=== PATIENT | female | born 1930 | race Caucasian/White ===

== ENCOUNTER 2016-07-27 11:10 | Outpatient (CLI) | payer MEDICARE | END 2016-07-27 11:11 | disposition home or self-care (01) | DX: R05 Cough (principal); R50.9 Fever, unspecified ==

== ENCOUNTER 2016-08-01 19:58 | Emergency (ER) | payer MEDICARE ==
[2016-08-01] MEDS ORDERED: predniSONE 20 MG TABLET PO STA (20:13)
[2016-08-01] MEDS ORDERED: ALBUTEROL NEB 2.5 MG/3 ML INH STA (20:13)
[2016-08-01] MEDS ORDERED: BENZONATATE 100 MG CAPSULE PO STA (20:13)
[2016-08-01] MEDS ORDERED: ONDANSETRON ODT 4 MG TABLET TL STA (20:22)
[2016-08-01] MEDS ORDERED: ALBUTEROL NEB 2.5 MG/3 ML INH ONE (20:32)
[2016-08-01] MEDS ORDERED: ONDANSETRON ODT 4 MG TABLET ONE (20:51)
== END 2016-08-01 21:04 | disposition home or self-care (01) ==
DX: J40 Bronchitis, not specified as acute or chronic (principal); I10 Essential (primary) hypertension; Z87.891 Personal history of nicotine dependence
CPT/HCPCS: 94640; 99283; J7613; Q0162

== ENCOUNTER 2016-08-19 12:36 | Emergency (ER) | payer MEDICARE | END 2016-08-19 15:53 | disposition home or self-care (01) | DX: R07.89 Other chest pain (principal); I10 Essential (primary) hypertension ==

== ENCOUNTER 2016-09-18 07:08 | Outpatient (CLI) | payer MEDICARE | END 2016-09-18 07:09 | disposition home or self-care (01) | DX: R07.89 Other chest pain (principal); I10 Essential (primary) hypertension ==

== ENCOUNTER 2017-04-13 16:19 | Outpatient (CLI) | payer MEDICARE ==
[2017-04-13 12:52] LABS: ALBUMIN/GLOBULIN RATIO 1.3 (1.0-2.2); BILIRUBIN,TOTAL 0.7 mg/dL (0.2-1.0); CALCIUM 9.9 mg/dL (8.5-10.3); CREATININE 0.9 mg/dL (0.4-1.0); POTASSIUM 3.7 mmol/L (3.5-5.0); TOTAL PROTEIN 7.6 g/dL (6.7-8.2)
[2017-04-13 13:09] LABS: THYROID STIMULATING HORMONE 3.44 uIU/mL (0.34-5.60)
[2017-04-13 13:11] LABS: BILIRUBIN,URINE NEGATIVE (NEGATIVE)
[2017-04-13 13:18] LABS: UA CHARGE (STRIP ONLY) YES; UR CULTURE IF IND NOT INDICATED
== END 2017-04-13 16:20 | disposition home or self-care (01) ==
LOC: LAB.R 16:19
PROVIDERS: ATTEND Physician Assistant Medical
DX: R41.3 Other amnesia (principal); F41.9 Anxiety disorder, unspecified
CPT/HCPCS: 80053; 81001; 81003; 82607; 84443; 87086

== ENCOUNTER 2017-04-16 11:41 | Outpatient (CLI) | payer MEDICARE ==
[2017-04-16] MEDS ORDERED: IOPAMIDOL-300 50 ML VIAL ONE (12:13)
[2017-04-16] MEDS ORDERED: IOPAMIDOL-300 100 ML VIAL IVP ONE ×2 (14:06)
--- NOTE | 2017-04-16 16:02 | CT Report ---
CT BRAIN WITH AND WITHOUT CONTRAST: 04/16/2017 CLINICAL INDICATION: Memory loss, anxiety. TECHNIQUE: Axial CT images of the brain were obtained prior to and following 50 mL Isovue-[address] No previous CT is available for comparison. In accordance with CT protocol optimization, one or more of the following dose reduction techniques w ere utilized for this exam: automated exposure control, adjustment of mA and/or KV based on patient size, or use of iterative reconstructive technique. FINDINGS: The ventricles and sulci demonstrate mild symmetric enlargement, compatible with atrophy. The basilar cisterns are patent. There is no evidence of hemorrhage or mass effect. No abnormal en hancement is appreciated following contrast administration. IMPRESSION: ATROPHY. NO EVIDENCE OF HEMORRHAGE OR ABNORMAL ENHANCEMENT. JOB #: [id number] EXT JOB #:[id number]
== END 2017-04-16 11:42 | disposition home or self-care (01) ==
LOC: DI 11:41
PROVIDERS: ATTEND Physician Assistant Medical
DX: G31.9 Degenerative disease of nervous system, unspecified (principal); R41.3 Other amnesia
CPT/HCPCS: 70470; Q9967

== ENCOUNTER 2017-06-12 18:58 | Outpatient (CLI) | payer MEDICARE ==
--- NOTE | 2017-06-14 15:58 | Ultrasound Report ---
CAROTID ULTRASOUND: 06/12/2017 HISTORY: Localized swelling, mass, and lump, left neck. COMPARISON: 12/23/2009. TECHNIQUE: Real-time sonographic vascular imaging was performed by the switchboard operator through the carotid arteries utilizing both color-flow and Doppler spectral analysis. Multiple assistance representative static images were saved for review. Vessel PSV cm/sec 2D Plaque Estimate % EDV cm/sec ICA/CCA PSV % Stenosis RCCA Prox 49.2 -- RCCA Dist 51.4 13.6 -- RECA 79 -- RT BULB 71.8 -- 25.1 1.4 CHICO Prox 69.7 -- 20 1.4 CHICO Mid 81.2 -- 26.4 1.6 CHICO Dist 107.4 -- 33.2 2.1 RVA 67.6 RVA flow direction: Antegrade. Vessel PSV cm/sec 2D Plaque Estimate % EDV cm/sec ICA/CCA PSV % Stenosis LCCA Prox 81.1 -- LCCA Dist 60.0 13.5 -- LECA 86 -- LFT BULB 41.1 -- 0.5 0.7 LICA Prox 58.4 -- 21.6 1.0 LICA Mid 76.3 -- 24.9 1.3 LICA Dist 112.8 -- 37.9 1.9 LVA 74.2 LVA flow direction: Antegrade. Velocity criteria are extrapolated from diameter data as defined by the Society of Radiologists in Ultrasound Consensus Conference Radiology 2003; 229; 340-346. Degree of Stenosis % ICA PSV cm/sec Plaque Estimate % ICA/CCA RSV Ratio ICA EDV cm/sec Normal < 125 None < 2.0 < 40 <50 < 125 < 50 < 2.0 < 40 50-69 125 - 130 >/= 50 2.0 - 4.0 40 - 100 >/= 70 but less than near occlusion > 230 >/= 50 > 4.0 > 100 Near occlusion High, low, or undetectable Visible lumen Variable Variable Total occlusion Undetectable No detectable lumen Not applicable Not applicable FINDINGS Calcified plaque noted in the carotid arteries bilaterally. The area of palpable concern left neck corresponds to the carotid bulb with a minimally prominent/tortuous carotid artery. RIGHT: There is mild plaquing in the right carotid bifurcation, without evidence of a focal hemodynamically significant carotid stenosis. LEFT: There is mild plaquing in the left carotid bifurcation, without evidence of a focal hemodynamically significant carotid stenosis. Vertebral arteries demonstrate antegrade flow bilaterally. IMPRESSION: NO EVIDENCE OF A FLOW-LIMITING STENOSIS IN EITHER CAROTID SYSTEM. BILATERAL VERTEBRAL ARTERY ANTEGRADE BLOOD FLOW. CALCIFIED PLAQUE NOTED IN THE CAROTID ARTERIES BILATERALLY. THE CLINICALLY PALPABLE LUMP CORRESPONDS TO A PROMINENT LEFT CAROTID BULB. NO ANEURYSM IS SEEN. MTDD
== END 2017-06-12 18:59 | disposition home or self-care (01) ==
LOC: DI 18:58
PROVIDERS: ATTEND Physician Assistant Medical
DX: R22.1 Localized swelling, mass and lump, neck (principal)
CPT/HCPCS: 93880

== ENCOUNTER 2017-07-26 08:00 | Outpatient (CLI) | payer MEDICARE ==
[2017-07-26 17:48] LABS: BASOPHILS # (AUTO) 0.1 10^3/uL (0.0-0.1); BASOPHILS % (AUTO) 1.2 %; EOSINOPHILS # (AUTO) 0.2 10^3/uL (0.0-0.7); EOSINOPHILS % (AUTO) 2.9 %; HGB - HEMOGLOBIN 12.1 g/dL (12.0-16.0); LYMPHOCYTES % (AUTO) 30.3 %; MEAN CORPUSCULAR HEMOGLOBIN 28.4 pg (27.0-31.0); MEAN CORPUSCULAR HGB CONC 32.1 g/dL (32.0-36.0); MEAN CORPUSCULAR VOLUME 88.5 fL (81.0-99.0); MONOCYTES # (AUTO) 0.6 10^3/uL (0.0-1.0); MONOCYTES % (AUTO) 9.8 %; NEUTROPHILS # (AUTO) 3.7 10^3/uL (1.5-6.6); NEUTROPHILS % (AUTO) 55.8 %; PLT - PLATELET COUNT 237 10^3/uL (130-450); RED BLOOD COUNT 4.25 10^6/uL (4.20-5.40); RED CELL DISTRIBUTION WIDTH 14.6 % (12.0-15.0); WHITE BLOOD COUNT 6.6 x10^3/uL (4.8-10.8)
[2017-07-26 18:07] LABS: ALBUMIN/GLOBULIN RATIO 1.3 (1.0-2.2); ALKALINE PHOSPHATASE 71 IU/L (42-121); ALT ALANINE AMINOTRANSFERASE 16 IU/L (10-60); AST ASPARTATE AMINOTRANSFERASE 28 IU/L (10-42); BILIRUBIN,TOTAL 0.4 mg/dL (0.2-1.0); BUN - BLOOD UREA NITROGEN 30 mg/dL (6-20); CALCIUM 8.8 mg/dL (8.5-10.3); CARBON DIOXIDE - CO2 28 mmol/L (21-32); CHLORIDE 103 mmol/L (101-111); CHOL/HDL RATIO 3.9 (<4.4); CHOLESTEROL 245 mg/dL; CREATININE 0.9 mg/dL (0.4-1.0); GFR - MDRD 60 (>89); GLUCOSE 81 mg/dL (70-100); HDL CHOLESTEROL 63 mg/dL; LDL CHOLESTEROL,CALCULATED 162 mg/dL; LDL/HDL RATIO 2.6 (<4.4); SODIUM 137 mmol/L (135-145); TOTAL PROTEIN 7.2 g/dL (6.7-8.2); VLDL CHOLESTEROL 20 mg/dL
== END 2017-07-26 08:01 | disposition home or self-care (01) ==
LOC: LAB.R 08:00
PROVIDERS: ATTEND Physician Assistant Medical
DX: I10 Essential (primary) hypertension (principal); E55.9 Vitamin D deficiency, unspecified; E78.2 Mixed hyperlipidemia; Z79.899 Other long term (current) drug therapy
CPT/HCPCS: 80053; 80061; 82306; 83721; 85025

== ENCOUNTER 2017-12-07 19:13 | Observation (INO) | payer MEDICARE ==
[2017-12-07] MEDS ORDERED: ASPIRIN CHEW 81 MG TABLET PO STA (19:45)
--- NOTE | 2017-12-07 19:45 | ED Physician Documentation ---
PD HPI CHEST PAIN - Stated complaint Stated Complaint: CHEST PX - Chief complaint Chief Complaint: Cardiac - History obtained from History obtained from: Patient, Family - History of Present Illness Timing - onset: How many hours ago (1) Timing - onset during: Other (talking on the phone) Timing - duration: Minutes (15-20) Timing - details: Abrupt onset, Now resolved Pain level max: 3 Pain level now: 0 Quality: Pressure, Tightness Location: Substernal Radiation: Other (non-radiating) Improved by: Nothing Worsened by: No: Exertion, Inspiration, Movement, Palpation Associated symptoms: Shortness of air (mild), Feeling faint / dizzy. No: Diaphoresis, Nausea, Vomiting, General Weakness, Palpitations Similar symptoms before: Has not had sx before Recently seen: Not recently seen Review of Systems Ten Systems: 10 systems reviewed and negative Constitutional: denies: Fever, Chills Ears: denies: Ear pain Nose: denies: Rhinorrhea / runny nose Throat: denies: Sore throat Cardiac: denies: Palpitations Respiratory: denies: Cough, Wheezing GI: denies: Abdominal Pain, Nausea, Vomiting, Diarrhea Skin: denies: Rash Musculoskeletal: denies: Neck pain, Back pain Neurologic: denies: Focal weakness, Numbness, Headache PD PAST MEDICAL HISTORY - Past Medical History Past Medical History: Yes Cardiovascular: Hypertension, High cholesterol, Murmur Respiratory: None Endocrine/Autoimmune: None GI: GERD : None HEENT: Chronic hearing loss Psych: Anxiety Musculoskeletal: Osteoarthritis Derm: None - Past Surgical History Past Surgical History: No General: Appendectomy Ortho: Carpal Tunnel surgery HEENT: Cataracts, Tonsil/Adenoidectomy Derm: Skin cancer surgery - Present Medications Home Medications: Ambulatory Orders Medication Instructions Recorded Confirmed Gabapentin 600 mg ORAL QPM 03/10/15 08/01/16 Hydrochlorothiazide 12.5 mg ORAL DAILY 03/10/15 08/01/16 Metoprolol Tartrate 25 mg ORAL BID 03/10/15 08/01/16 Ubidecarenone [Co Q-10] 200 mg ORAL DAILY 03/10/15 08/01/16 Vit B12/FA/Pyridoxine HCl/Aa15 1 tab ORAL DAILY 03/10/15 08/01/16 [Glycotrol Capsule] Vit D3/Folic Acid/B2/B6/B12 1 tab ORAL DAILY 03/10/15 08/01/16 [Folgard Tablet] Vit E/Tocotrienol Jonathan,Alph,Del 1 tab ORAL DAILY 03/10/15 08/01/16 [Maxilife Rice 50 mg Capsule] Albuterol Sulfate [Proventil Hfa 1 - 2 puffs IH Q4H PRN #1 08/01/16 Inhaler] hfa.aer.ad Azithromycin 250 mg PO DAILY 08/01/16 08/01/16 Benzonatate [Tessalon] 200 mg PO TID PRN #30 capsule 08/01/16 Ondansetron HCl [Zofran] 4 mg PO Q6H PRN #10 tablet 08/01/16 predniSONE [Deltasone] 60 mg PO DAILY 5 Days tablet 08/01/16 - Allergies Allergies/Adverse Reactions: Allergies Allergy/AdvReac Type Severity Reaction Status Date / Time codeine AdvReac Unknown Verified 12/07/17 19:24 - Social History Does the pt smoke?: No Smoking Status: Never smoker Does the pt drink ETOH?: No Does the pt have substance abuse?: No - Immunizations Immunizations are current?: Yes - POLST Patient has POLST: No PD ED PE NORMAL - Vitals Vital signs reviewed: Yes - General General: Alert and oriented X 3, No acute distress - HEENT HEENT: Moist mucous membranes - Neck Neck: Supple, no meningeal sign - Cardiac Cardiac: RRR, Strong equal pulses - Respiratory Respiratory: No respiratory distress, Clear bilaterally - Abdomen Abdomen: Soft, Non tender, Non distended - Back Back: No spinal TTP - Derm Derm: Warm and dry - Extremities Extremities: No edema, No calf tenderness / cord - Neuro Neuro: Alert and oriented X 3 - Psych Psych: Normal mood, Normal affect Results - Vitals Vitals: Vital Signs - 24 hr 12/07/17 12/07/17 19:22 20:06 Temperature 36.8 C Heart Rate 71 56 L Respiratory 17 18 Rate Blood Pressure 230/103 H 194/71 H O2 Saturation 98 97 Oxygen O2 Source Room air - EKG (time done) 1924 Rate: Rate (enter#) (64) Rhythm: NSR [place]: Normal Intervals: Normal NM QRS: Normal Ischemia: Normal ST segments, Q waves (III) - Labs Labs: Laboratory Tests 12/07/17 12/07/17 12/07/17 19:47 19:47 19:47 WBC 8.7 RBC 4.21 Hgb 11.0 L Hct 34.1 L MCV 81.1 MCH 26.1 L MCHC 32.2 RDW 16.2 H Plt Count 222 MPV 8.9 Neut # (Auto) 4.0 Lymph # (Auto) 3.6 H [place] # (Auto) 0.9 Eos # (Auto) 0.2 Baso # (Auto) 0.1 Absolute Nucleated RBC 0.00 Nucleated RBC % 0.0 Sodium 136 Potassium 3.9 Chloride 102 Carbon Dioxide 26 Anion Gap 8.0 BUN 29 H Creatinine 0.9 Estimated GFR (MDRD) 60 L Glucose 111 H Calcium 9.3 Total Bilirubin 0.6 AST 30 ALT 19 Alkaline Phosphatase 78 Troponin I < 0.04 Total Protein 7.3 Albumin 4.1 Globulin 3.2 Albumin/Globulin Ratio 1.3 Lipase 33 - Rads (name of study) cxr Radiology: Prelim report reviewed, EMP read contemporaneously, See rad report ( No acute radiographic pulmonary abnormalities. ) PD MEDICAL DECISION MAKING - ED course Complexity details: reviewed results, re-evaluated patient, considered differential (No ST elevation [place], no aortic dissection, no PE, no tension pneumothorax, no aortic aneurysm), d/w patient, d/w family, d/w sharepoint consultant ED course: Patient is an 87-year-old female who presents to the emergency department with between 15 and 30 minutes of constant chest pressure tonight. This resolved prior to arrival. She was also significantly hypertensive upon arrival to the emergency department. She states that she does not check her blood pressure at home, but states that she believes it is lower than that. She states it has been this high in the past however. No acute EKG findings. Given her uncontrolled hypertension, age and 15-30 minutes of centralized chest pain, I think it is reasonable to place her in observation for cardiac rule out. Discussed the case with Dr. Frias, hospitalist who accepts. This document was made in part using voice recognition software. While efforts are made to proofread this document, sound alike and grammatical errors may occur. Departure - Departure Disposition: ED Place in Observation Clinical Impression: Chest pain Qualifiers: Chest pain type: unspecified Qualified Code(s): R07.9 - Chest pain, unspecified Hypertension Qualifiers: Hypertension type: unspecified Qualified Code(s): I10 - Essential (primary) hypertension Condition: Stable Discharge Date/Time: 12/07/17 22:03
[2017-12-07 19:53] LABS: BASOPHILS # (AUTO) 0.1 10^3/uL (0.0-0.1); BASOPHILS % (AUTO) 1.1 %; EOSINOPHILS # (AUTO) 0.2 10^3/uL (0.0-0.7); EOSINOPHILS % (AUTO) 1.9 %; LYMPHOCYTES # (AUTO) 3.6 10^3/uL (1.5-3.5); LYMPHOCYTES % (AUTO) 41.2 %; MEAN CORPUSCULAR HEMOGLOBIN 26.1 pg (27.0-31.0); MEAN CORPUSCULAR HGB CONC 32.2 g/dL (32.0-36.0); MEAN CORPUSCULAR VOLUME 81.1 fL (81.0-99.0); MEAN PLATELET VOLUME 8.9 fL (7.9-10.8); MONOCYTES # (AUTO) 0.9 10^3/uL (0.0-1.0); MONOCYTES % (AUTO) 10.5 %; NEUTROPHILS % (AUTO) 45.3 %; PLT - PLATELET COUNT 222 10^3/uL (130-450); RED BLOOD COUNT 4.21 10^6/uL (4.20-5.40); RED CELL DISTRIBUTION WIDTH 16.2 % (12.0-15.0); WHITE BLOOD COUNT 8.7 x10^3/uL (4.8-10.8)
[2017-12-07 20:06] LABS: ALBUMIN 4.1 g/dL (3.2-5.5); ALBUMIN/GLOBULIN RATIO 1.3 (1.0-2.2); BILIRUBIN,TOTAL 0.6 mg/dL (0.2-1.0); CALCIUM 9.3 mg/dL (8.5-10.3); CREATININE 0.9 mg/dL (0.4-1.0); TOTAL PROTEIN 7.3 g/dL (6.7-8.2)
--- NOTE | 2017-12-07 20:31 | XRAY Report ---
EXAM: CHEST RADIOGRAPHY EXAM DATE: 12/07/2017 08:08 PM. CLINICAL HISTORY: Chest pain. COMPARISON: 07/27/16. TECHNIQUE: 1 view. FINDINGS: Lungs/Pleura: No dense consolidation. No large effusion or pneumothorax. No pulmonary edema. Mediastinum: Heart and mediastinal contours are unremarkable. Other: Dextroscoliosis. IMPRESSION: No acute radiographic pulmonary abnormalities. [facility] Referring Provider Line: [phone] SITE ID: [id number]
--- NOTE | 2017-12-07 20:31 | XRAY Preliminary Report ---
Exam: XR CHEST 1 VIEW X-RAY IMPRESSION: No acute radiographic pulmonary abnormalities. [facility] SITE ID: [id number]
[2017-12-07] MEDS ORDERED: BENZONATATE 100 MG CAPSULE PO PRN (20:48)
[2017-12-07] MEDS ORDERED: SODIUM CHLORIDE FLUSH 0.9% 10 ML SYRINGE IVP PRN (20:49)
[2017-12-07] MEDS ORDERED: PROCHLORPERAZINE 10 MG/2 ML VIAL IVP PRN (20:49)
[2017-12-07] MEDS ORDERED: MORPHINE 2 MG/ML SYRINGE IVP PRN (20:49)
[2017-12-07] MEDS ORDERED: IBUPROFEN 600 MG TABLET PO PRN (20:49)
[2017-12-07] MEDS ORDERED: ONDANSETRON 4 MG/2 ML VIAL IVP PRN (20:49)
[2017-12-07] MEDS ORDERED: NITROGLYCERIN SL 0.4 MG TABLET SL PRN (20:49)
[2017-12-07] MEDS ORDERED: oxyCODONE 5 MG TABLET PO PRN (20:49)
[2017-12-07] MEDS ORDERED: ZOLPIDEM 5 MG TABLET PO PRN (20:49)
[2017-12-07] MEDS ORDERED: ACETAMINOPHEN 325 MG TABLET PO PRN (20:49)
[2017-12-07] MEDS ORDERED: ATORVASTATIN 40 MG TABLET PO SCH (21:00)
[2017-12-07] MEDS ORDERED: GABAPENTIN 300 MG CAPSULE PO SCH (21:00)
[2017-12-07] MEDS: METOPROLOL TARTRATE 25 MG TABLET PO SCH (22:49)
[2017-12-07] MEDS ORDERED: hydrALAZINE INJ 20 MG/ML VIAL IVP SCH (22:58)
--- NOTE | 2017-12-07 23:13 | HISTORY & PHYSICAL EXAMINATION ---
Chief Complaint - Chief Complaint Chief Complaint: Chest Pain History of Present Illness - Admitted From Admitted From:: Emergency department - History Obtained From Records Reviewed: Yes History obtained from: Patient Exam Limitations: None - History of Present Illness HPI Comment/Other: Patient is an 87-year-old female with a past medical history significant for hypertension, restless leg syndrome, ascites and cataracts who presents to the emergency department with a chief complaint of chest pain. The patient states that she has been under a lot of stress over the last week as her was hospitalized last week and her daughter has been also dealing with health problems. She states that today she was on the phone and just getting ready to hang up when all of a sudden she felt hit on her chest. She states that she felt a pressure-like pain in the substernal area. She states that it only lasted for about 1-2 seconds and then resolved. She states that she then walked out of the kitchen and then got hit again with a wave of pain that was in the substernal area that lasted a little bit longer this time but had resolved by the time she got to the hospital. She states that she left home 5- 10 minutes after she felt the second episode of chest pain. She states that she had no associated symptoms. She denies any associated shortness of air, nausea, palpitations or diaphoresis. She states that the pain did not radiate it just stayed in that substernal area right in the center of her chest. She states that she has never had pain like this before. She states that in the past she has had pain in her left shoulder or in her jaw but never substernal like this before. She states when the pain came on the second time it was more severe and lasted slightly longer. She states that after she had the pain she just did not feel right. The patient has had a stress test 1 year ago with her primary care physician which was negative at that time. Patient denies any headache, blurred vision, runny nose, sore throat, nasal congestion, difficulty swallowing, orthopnea, PND, increased lower extremity swelling, fevers, chills, cough, abdominal pain, vomiting, diarrhea, constipation, urinary urgency, urinary frequency, dysuria, joint pain, muscle aches, back pain, neck stiffness, recent unintentional weight loss, changes in her appetite, skin changes, skin rashes, hair loss, polyuria, polydipsia, or any focal neurologic deficits. On presentation to the emergency department the patient was afebrile but was very hypertensive with a blood pressure of 230/103 after she settled on a blood pressure did come down slightly but was still elevated. The patient was not in any respiratory distress. The patient was given aspirin in the emergency department. The patient underwent routine lab work which was significant for mild anemia with hemoglobin of 11.0. The patient's troponin was less than 0.04. Patient did undergo a EKG which showed a normal sinus rhythm without any ST elevations or ischemic changes. The patient also had a chest x-ray done in the emergency department which showed no acute radiographic pulmonary abnormalities. Given the patient's age and risk factors with uncontrolled hypertension the patient was placed in observation for serial troponins and telemetry monitoring. History - Past Medical History Cardiovascular: reports: Hypertension, High cholesterol, Murmur Respiratory: reports: None Endocrine/Autoimmune: reports: None GI: reports: GERD : reports: None HEENT: reports: Chronic hearing loss Psych: reports: Anxiety Musculoskeletal: reports: Osteoarthritis Derm: reports: None MRSA Hx?: No - Past Surgical History General: reports: Appendectomy Ortho: reports: Carpal Tunnel surgery HEENT: reports: Cataracts, Tonsil/Adenoidectomy Derm: reports: Skin cancer surgery - Family & Social History Family History: Mother: (Dad in a motor vehicle accident), CAD, Father: , Brother: Cancer (Lung cancer), Mental Illness (Brother committed suicide) Living arrangement: At home Living Situation: With spouse/s.o. Social History Notes: The patient lives in [place] with her . They have been for 60 years. They have 6 children 3R her biological children and she has 3 stepchildren. 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 She is still fully independent and ambulates without any assistance device. The patient smoked for just over 30 years and smoked about 1-1/2 packs a day but quit in 1978. She and her were moderate drinkers for some time but quit many years ago. She denies any illicit drug use. - POLST Patient has POLST: No POLST Status: DNR Meds/Allgy - Home Medications Home Medications: Ambulatory Orders Medication Instructions Recorded Confirmed Gabapentin 600 mg ORAL QPM 03/10/15 08/01/16 Hydrochlorothiazide 12.5 mg ORAL DAILY 03/10/15 08/01/16 Metoprolol Tartrate 25 mg ORAL BID 03/10/15 08/01/16 Ubidecarenone [Co Q-10] 200 mg ORAL DAILY 03/10/15 08/01/16 Vit B12/FA/Pyridoxine HCl/Aa15 1 tab ORAL DAILY 03/10/15 08/01/16 [Glycotrol Capsule] Vit D3/Folic Acid/B2/B6/B12 1 tab ORAL DAILY 03/10/15 08/01/16 [Folgard Tablet] Vit E/Tocotrienol Jonathan,Alph,Del 1 tab ORAL DAILY 03/10/15 08/01/16 [Maxilife Rice 50 mg Capsule] Albuterol Sulfate [Proventil Hfa 1 - 2 puffs IH Q4H PRN #1 08/01/16 Inhaler] hfa.aer.ad Azithromycin 250 mg PO DAILY 08/01/16 08/01/16 Benzonatate [Tessalon] 200 mg PO TID PRN #30 capsule 08/01/16 Ondansetron HCl [Zofran] 4 mg PO Q6H PRN #10 tablet 08/01/16 predniSONE [Deltasone] 60 mg PO DAILY 5 Days tablet 08/01/16 - Allergies Allergies/Adverse Reactions: Allergies Allergy/AdvReac Type Severity Reaction Status Date / Time codeine AdvReac Unknown Verified 12/07/17 19:24 Review of Systems - Other Findings Other Findings: A comprehensive review of systems was performed the pertinent positives and negatives are stated above in the HPI and the remainder of the review of systems is negative. Exam - Vital Signs Reviewed Vital Signs: Yes Vital Signs: Vital Signs x48h Temp Pulse Pulse Resp BP BP Pulse Ox 12/07/17 22:49 196/78 H 12/07/17 22:08 37.3 C 61 16 198/78 H 97 12/07/17 21:44 64 19 196/85 H 96 12/07/17 20:57 57 L 16 155/82 H 97 - Physical Exam General Appearance: positive: No acute distress Eyes Bilateral: positive: Normal inspection, PERRL ENT: positive: ENT inspection nml, Pharynx nml, No signs of dehydration Neck: positive: Nml inspection, Thyroid nml, No JVD, Trachea midline Respiratory: positive: Chest non-tender, No respiratory distress, Breath sounds nml. negative: Wheezes Cardiovascular: positive: Regular rate & rhythm, No murmur, No gallop Peripheral Pulses: positive: 2+ Abdomen: positive: Non-tender, No organomegaly, Nml bowel sounds, No distention Back: positive: Nml inspection. negative: CVA tenderness (R), CVA tenderness (L ) Skin: positive: Color nml, No rash, Warm, Dry. negative: Cyanosis, Pallor Extremities: positive: Non-tender, Full ROM, Nml appearance Neurologic/Psychiatric: positive: Oriented x3, CN's nml (2-12), Motor nml, Sensation nml, Mood/affect nml Conclusion/Plan - Problem List (1) Chest pain Conclusion/Plan: Patient presented with chest pain occurring at rest which started less than an hour prior to arrival to the emergency department. It was substernal without any radiation and resolves on its own by the time the patient got to the emergency department. The patient has risk factors of hypertension, hyperlipidemia and age. She had a stress test just over a year ago that was negative. The patient's presenting EKG and troponin were negative. The patient was placed in observation for rule out of acute coronary syndrome Plan: Serial troponins 3 Telemetry monitoring Echocardiogram Nitroglycerin as needed Aspirin Lipitor Qualifiers: Chest pain type: unspecified Qualified Code(s): R07.9 - Chest pain, unspecified (2) Hypertension Conclusion/Plan: The patient has uncontrolled hypertension on presentation with systolic blood pressure of 200. The patient's blood pressure continued to be uncontrolled even when she arrived to the floor. The patient does take hydrochlorothiazide along with metoprolol at home. Given the patient's uncontrolled blood pressure we will give her IV hydralazine and her home medication. We will monitor her blood pressure and titrate medications as needed. Qualifiers: Hypertension type: essential hypertension Qualified Code(s): I10 - Essential (primary) hypertension (3) Restless leg syndrome Conclusion/Plan: Patient has a history of restless leg syndrome and uses gabapentin at home we will continue her on her home dose of gabapentin. (4) Anxiety Conclusion/Plan: The patient does have a history of anxiety and given her recent stress has been under quite a bit of anxiety recently. She uses Lorazepam at home for her anxiety and we will continue her on Lorazepam while she is hospitalized here. - Lab Results Lab results reviewed: Yes Fish Bones: 12/07/17 19:47 12/07/17 19:47 Other Lab Results: Laboratory Results WBC 8.7 x10^3/uL (4.8-10.8) 12/07/17 19:47 RBC 4.21 10^6/uL (4.20-5.40) 12/07/17 19:47 Hgb 11.0 g/dL (12.0-16.0) L 12/07/17 19:47 Hct 34.1 % (37.0-47.0) L 12/07/17 19:47 MCV 81.1 fL (81.0-99.0) 12/07/17 19:47 MCH 26.1 pg (27.0-31.0) L 12/07/17 19:47 MCHC 32.2 g/dL (32.0-36.0) 12/07/17 19:47 RDW 16.2 % (12.0-15.0) H 12/07/17 19:47 Plt Count 222 10^3/uL (130-450) 12/07/17 19:47 MPV 8.9 fL (7.9-10.8) 12/07/17 19:47 Neut # (Auto) 4.0 10^3/uL (1.5-6.6) 12/07/17 19:47 Lymph # (Auto) 3.6 10^3/uL (1.5-3.5) H 12/07/17 19:47 [place] # (Auto) 0.9 10^3/uL (0.0-1.0) 12/07/17 19:47 Eos # (Auto) 0.2 10^3/uL (0.0-0.7) 12/07/17 19:47 Baso # (Auto) 0.1 10^3/uL (0.0-0.1) 12/07/17 19:47 Absolute Nucleated RBC 0.00 x10^3/uL 12/07/17 19:47 Nucleated RBC % 0.0 /100WBC 12/07/17 19:47 Sodium 136 mmol/L (135-145) 12/07/17 19:47 Potassium 3.9 mmol/L (3.5-5.0) 12/07/17 19:47 Chloride 102 mmol/L (101-111) 12/07/17 19:47 Carbon Dioxide 26 mmol/L (21-32) 12/07/17 19:47 Anion Gap 8.0 (6-13) 12/07/17 19:47 BUN 29 mg/dL (6-20) H 12/07/17 19:47 Creatinine 0.9 mg/dL (0.4-1.0) 12/07/17 19:47 Estimated GFR (MDRD) 60 (>89) L 12/07/17 19:47 Glucose 111 mg/dL (70-100) H 12/07/17 19:47 Calcium 9.3 mg/dL (8.5-10.3) 12/07/17 19:47 Total Bilirubin 0.6 mg/dL (0.2-1.0) 12/07/17 19:47 AST 30 IU/L (10-42) 12/07/17 19:47 ALT 19 IU/L (10-60) 12/07/17 19:47 Alkaline Phosphatase 78 IU/L (42-121) 12/07/17 19:47 Troponin I < 0.04 ng/mL (<0.49) 12/07/17 19:47 Total Protein 7.3 g/dL (6.7-8.2) 12/07/17 19:47 Albumin 4.1 g/dL (3.2-5.5) 12/07/17 19:47 Globulin 3.2 g/dL (2.1-4.2) 12/07/17 19:47 Albumin/Globulin Ratio 1.3 (1.0-2.2) 12/07/17 19:47 Lipase 33 U/L (22-51) 12/07/17 19:47 - Diagnostic Imaging Results Diagnostic Imaging Results: positive: Final report reviewed Diagnostic Imaging Results Comments: Chest x-ray Impression: No acute radiographic pulmonary abnormalities - EKG Results EKG Interpreted Independently: Yes EKG Findings: Normal sinus rhythm without any ST elevations or ischemic changes Core Measures - Anticipated LOS I expect patient to be DC'd or transferred within 96 hours.: Yes - DVT/VTE - Prophylaxis VTE/DVT Prophylaxis med ordered at admit?: Yes
[2017-12-07] MEDS ORDERED: WATER FOR INJECTION,STERILE 10 ML ONE (23:51)
[2017-12-08] MEDS: SODIUM CHLORIDE FLUSH 0.9% 10 ML SYRINGE IVP SCH ×2 (00:42→09:09)
[2017-12-08] MEDS ORDERED: LORazepam 0.5 MG TABLET PO PRN (00:50)
--- NOTE | 2017-12-08 01:18 | ADVANCE CARE PLANNING NOTE ---
Advance Care Planning - Date/Time Date: 12/07/17 Time: 22:45 - Purpose of encounter Text: To establish patient's CODE STATUS. - Parties in attendance Parties in attendance: Myself Dr. Frias and the patient Charisse Voss - Decisional capacity Decisional capacity of: Patient has mild memory impairment but has full capacity and understanding of her medical condition to make her own decisions independently. - Subjective/Patient's story Subjective/Patient's story: Patient is an 87-year-old female who has a history of hypertension, anxiety, restless leg syndrome and cataracts she is otherwise fairly healthy lives with her in their home and is fully independent. She came to the hospital today as she was having chest pain is now in observation for serial troponins and rule out of acute coronary syndrome. - Objective/Medical story Objective/Medical Story: Patient is an 87-year-old female who has a history of hypertension, anxiety, restless leg syndrome and cataracts she is otherwise fairly healthy lives with her in their home and is fully independent. She came to the hospital today as she was having chest pain is now in observation for serial troponins and rule out of acute coronary syndrome. - Goals of Care Goals of care determinations: The patient states that at this age she would not want any excessive measures to be performed. She states she still wants to be fully treated for example if she did have acute coronary syndrome she would want a cardiac cath and stents if needed. She however would not want to be resuscitated if her heart was to stop as she would want to go naturally. She states that she does not want to be intubated just in order to prolong her life but would accept intubation for a necessary procedure if the intubation is reversible. - Plan Plan: We will make the patient's CODE STATUS DO NOT RESUSCITATE. We will work her up for acute coronary syndrome while she is in observation. - Code Status Code Status: Do Not Attempt Resuscitation - Time Spent on Advance Care Planning Time spent on advance care plannin minutes
[2017-12-08 04:53] LABS: BASOPHILS # (AUTO) 0.1 10^3/uL (0.0-0.1); EOSINOPHILS # (AUTO) 0.2 10^3/uL (0.0-0.7); EOSINOPHILS % (AUTO) 2.4 %; LYMPHOCYTES # (AUTO) 2.6 10^3/uL (1.5-3.5); LYMPHOCYTES % (AUTO) 28.5 %; MEAN CORPUSCULAR HEMOGLOBIN 26.3 pg (27.0-31.0); MEAN CORPUSCULAR HGB CONC 32.4 g/dL (32.0-36.0); MEAN CORPUSCULAR VOLUME 81.2 fL (81.0-99.0); MEAN PLATELET VOLUME 9.4 fL (7.9-10.8); MONOCYTES # (AUTO) 1.1 10^3/uL (0.0-1.0); MONOCYTES % (AUTO) 11.7 %; NEUTROPHILS # (AUTO) 5.1 10^3/uL (1.5-6.6); NEUTROPHILS % (AUTO) 56.4 %; PLT - PLATELET COUNT 206 10^3/uL (130-450); RED BLOOD COUNT 4.18 10^6/uL (4.20-5.40); WHITE BLOOD COUNT 9.1 x10^3/uL (4.8-10.8)
[2017-12-08 05:13] LABS: ALBUMIN 3.7 g/dL (3.2-5.5); ALBUMIN/GLOBULIN RATIO 1.3 (1.0-2.2); ALKALINE PHOSPHATASE 65 IU/L (42-121); ALT ALANINE AMINOTRANSFERASE 16 IU/L (10-60); AST ASPARTATE AMINOTRANSFERASE 26 IU/L (10-42); BILIRUBIN,TOTAL 0.7 mg/dL (0.2-1.0); BUN - BLOOD UREA NITROGEN 26 mg/dL (6-20); CALCIUM 8.6 mg/dL (8.5-10.3); CARBON DIOXIDE - CO2 26 mmol/L (21-32); CHLORIDE 101 mmol/L (101-111); CHOL/HDL RATIO 4.2 (<4.4); CHOLESTEROL 219 mg/dL; CREATININE 0.9 mg/dL (0.4-1.0); GFR - MDRD 60 (>89); GLUCOSE 96 mg/dL (70-100); HDL CHOLESTEROL 52 mg/dL; LDL CHOLESTEROL,CALCULATED 149 mg/dL; LDL/HDL RATIO 2.9 (<4.4); SODIUM 134 mmol/L (135-145); TOTAL PROTEIN 6.5 g/dL (6.7-8.2); VLDL CHOLESTEROL 18 mg/dL
[2017-12-08] MEDS ORDERED: ASPIRIN EC 81 MG TABLET PO SCH (09:00)
[2017-12-08] MEDS ORDERED: FAMOTIDINE 20 MG TABLET PO SCH (09:00)
[2017-12-08] MEDS ORDERED: hydroCHLOROthiazide 25 MG TABLET PO SCH (09:00)
[2017-12-08] MEDS ORDERED: ENOXAPARIN 40 MG/0.4 ML SYRINGE SUBQ SCH (09:00)
[2017-12-08] MEDS ORDERED: POLYETHYLENE GLYCOL 3350 17 GM PACKET PO SCH (09:00)
[2017-12-08] MEDS ORDERED: hydroCHLOROthiazide 12.5 MG CAPSULE PO SCH (09:00)
[2017-12-08] MEDS: METOPROLOL TARTRATE 25 MG TABLET PO SCH (09:07)
[2017-12-08 10:50] VITALS: BP 111/51
[2017-12-08] MEDS ORDERED: POTASSIUM CHLORIDE 20 MEQ TABLET PO ONE (10:51)
--- NOTE | 2017-12-08 10:55 | Discharge Plan ---
Discharge Plan Disposition: 01 Home, Self Care Condition: Stable Diet: Cardiac Activity Restrictions: Activity as Tolerated Shower Restrictions: No (fall precaution) Instruction Topics: Heart Risk, Heart Attack Warning Signs Follow-Up Care: [facility] - Cardiac No Smoking: If you smoke, Please STOP! Call for help. Follow-up with: Katie Storm MD [Primary Care Provider] -
--- NOTE | 2017-12-08 10:57 | DISCHARGE SUMMARY ---
Discharge Summary Discharge Date: 12/08/17 Discharging Provider: DEE Primary Care Provider: Dr.Amanda Storm Condition at Discharge: Stable Discharge Disposition: 01 Home, Self Care Discharge Facility Name: home - DIAGNOSES Admission Diagnoses: (1) Chest pain (2) Hypertension (3) Restless leg syndrome (4) Anxiety Discharge Diagnoses with Status of Each Condition: (1) Chest pain no more chest pain. it is more likely atypical chest pain, un-consistent story per dr. Frias report. three times of troponin test is negative. EKG sinus rhythm. ECHO is unremarkable (2) Hypertension stable, continue to be managed by PCP (3) Restless leg syndrome chronic stable, continue to be managed by PCP (4) Anxiety stable, continue to be managed by PCP - HPI History of Present Illness: refer from Dr. Frias's HPI for pt as the following: Patient is an 87-year-old female with a past medical history significant for hypertension, restless leg syndrome, ascites and cataracts who presents to the emergency department with a chief complaint of chest pain. The patient states that she has been under a lot of stress over the last week as her was hospitalized last week and her daughter has been also dealing with health problems. She states that today she was on the phone and just getting ready to hang up when all of a sudden she felt hit on her chest. She states that she felt a pressure-like pain in the substernal area. She states that it only lasted for about 1-2 seconds and then resolved. She states that she then walked out of the kitchen and then got hit again with a wave of pain that was in the substernal area that lasted a little bit longer this time but had resolved by the time she got to the hospital. She states that she left home 5- 10 minutes after she felt the second episode of chest pain. She states that she had no associated symptoms. She denies any associated shortness of air, nausea, palpitations or diaphoresis. She states that the pain did not radiate it just stayed in that substernal area right in the center of her chest. She states that she has never had pain like this before. She states that in the past she has had pain in her left shoulder or in her jaw but never substernal like this before. She states when the pain came on the second time it was more severe and lasted slightly longer. She states that after she had the pain she just did not feel right. The patient has had a stress test 1 year ago with her primary care physician which was negative at that time. Patient denies any headache, blurred vision, runny nose, sore throat, nasal congestion, difficulty swallowing, orthopnea, PND, increased lower extremity swelling, fevers, chills, cough, abdominal pain, vomiting, diarrhea, constipation, urinary urgency, urinary frequency, dysuria, joint pain, muscle aches, back pain, neck stiffness, recent unintentional weight loss, changes in her appetite, skin changes, skin rashes, hair loss, polyuria, polydipsia, or any focal neurologic deficits. On presentation to the emergency department the patient was afebrile but was very hypertensive with a blood pressure of 230/103 after she settled on a blood pressure did come down slightly but was still elevated. The patient was not in any respiratory distress. The patient was given aspirin in the emergency department. The patient underwent routine lab work which was significant for mild anemia with hemoglobin of 11.0. The patient's troponin was less than 0.04. Patient did undergo a EKG which showed a normal sinus rhythm without any ST elevations or ischemic changes. The patient also had a chest x-ray done in the emergency department which showed no acute radiographic pulmonary abnormalities. Given the patient's age and risk factors with uncontrolled hypertension the patient was placed in observation for serial troponins and telemetry monitoring. - ALLERGIES Allergies/Adverse Reactions: Allergies Allergy/AdvReac Type Severity Reaction Status Date / Time codeine AdvReac Unknown Verified 12/07/17 19:24 - MEDICATIONS Home Medications: Ambulatory Orders Medication Instructions Recorded Confirmed Gabapentin 300 - 600 mg PO QPM 03/10/15 12/08/17 Hydrochlorothiazide 12.5 mg PO DAILY 03/10/15 12/08/17 Buspirone HCl 7.5 mg PO BID 12/08/17 12/08/17 Cholecalciferol (Vitamin D3) 2,000 unit PO DAILY 12/08/17 12/08/17 [Vitamin D] Metoprolol Succinate [Toprol Xl] 100 mg PO DAILY 12/08/17 12/08/17 - PHYSICAL EXAM AT DISCHARGE General Appearance: positive: No acute distress, Alert. negative: Lethargic Eyes Bilateral: positive: Normal inspection, PERRL. negative: No lid inflammation, Conjunctivae nml ENT: positive: ENT inspection nml, Pharynx nml, No signs of dehydration. negative: Purulent nasal drainage, Pharyngeal erythema, Oral lesions Neck: positive: Nml inspection, Thyroid nml, No JVD, Trachea midline. negative : Thyromegaly, Lymphadenopathy (R), Lymphadenopathy (L), Stiff neck, Carotid bruit, Swelling/bruising, Tracheal deviation Respiratory: positive: Chest non-tender, No respiratory distress, Breath sounds nml. negative: Wheezes, Rales, Rhonchi Cardiovascular: positive: Regular rate & rhythm, No murmur, No gallop. negative : Irregularly irregular, Extrasystoles, Tachycardia, Bradycardia, JVD present, Systolic murmur, Diastolic murmur Peripheral Pulses: positive: 2+ Abdomen: positive: Non-tender, No organomegaly, Nml bowel sounds, No distention. negative: Tenderness, Guarding, Rebound Back: positive: Nml inspection. negative: CVA tenderness (R), CVA tenderness (L ) Skin: positive: Color nml, No rash, Warm, Dry. negative: Cyanosis, Diaphoresis , Pallor, Skin rash Extremities: positive: Non-tender, Full ROM, Nml appearance. negative: Calf tenderness, Joint swelling, Tomasa's sign/cords Neurologic/Psychiatric: positive: Oriented x3, Motor nml, Sensation nml, Mood/ affect nml. negative: Sensory loss, Facial droop, Slurred/abnml speech, Depressed mood/affect - LABS Result Diagrams: 12/08/17 04:30 12/08/17 04:30 - FOLLOW UP Follow Up: you may follow up your PCP in one week. Should your symptoms return or worsen, you may present ER or call 911 for help - TIME SPENT Time Spent in Discharge (Minutes): 35
== END 2017-12-08 11:41 | disposition home or self-care (01) ==
LOC: ED 19:13 → MS3 20:49
PROVIDERS: ADMIT Internal Medicine; ATTEND Nurse Practitioner Gerontology
DX: R07.89 Other chest pain (principal); I10 Essential (primary) hypertension; E78.5 Hyperlipidemia, unspecified; G25.81 Restless legs syndrome; F41.9 Anxiety disorder, unspecified; D64.9 Anemia, unspecified; K21.9 Gastro-esophageal reflux disease without esophagitis; Z66 Do not resuscitate; Z63.79 Other stressful life events affecting family and household; Z85.828 Personal history of other malignant neoplasm of skin; Z87.891 Personal history of nicotine dependence; Z79.899 Other long term (current) drug therapy
CPT/HCPCS: 36415; 71045; 80053; 80061; 83690; 83880; 84484; 85025; 93005; 93306; 96372; 96374; 99284; 99285; A9270; G0378; J1650; 83721

== ENCOUNTER 2018-08-01 08:00 | Outpatient (CLI) | payer MEDICARE ==
[2018-08-01 13:40] LABS: BASOPHILS # (AUTO) 0.1 10^3/uL (0.0-0.1); BASOPHILS % (AUTO) 1.3 %; EOSINOPHILS # (AUTO) 0.1 10^3/uL (0.0-0.7); EOSINOPHILS % (AUTO) 1.7 %; LYMPHOCYTES # (AUTO) 2.4 10^3/uL (1.5-3.5); LYMPHOCYTES % (AUTO) 31.2 %; MEAN CORPUSCULAR HEMOGLOBIN 29.4 pg (27.0-31.0); MEAN CORPUSCULAR VOLUME 86.5 fL (81.0-99.0); MEAN PLATELET VOLUME 9.7 fL (7.9-10.8); MONOCYTES # (AUTO) 0.6 10^3/uL (0.0-1.0); MONOCYTES % (AUTO) 7.6 %; NEUTROPHILS # (AUTO) 4.5 10^3/uL (1.5-6.6); NEUTROPHILS % (AUTO) 58.2 %; PLT - PLATELET COUNT 226 10^3/uL (130-450); RED BLOOD COUNT 4.77 10^6/uL (4.20-5.40); RED CELL DISTRIBUTION WIDTH 16.4 % (12.0-15.0); WHITE BLOOD COUNT 7.8 x10^3/uL (4.8-10.8)
[2018-08-01 15:55] LABS: ALBUMIN 4.1 g/dL (3.2-5.5); ALBUMIN/GLOBULIN RATIO 1.2 (1.0-2.2); ALKALINE PHOSPHATASE 71 IU/L (42-121); ALT ALANINE AMINOTRANSFERASE 14 IU/L (10-60); AST ASPARTATE AMINOTRANSFERASE 26 IU/L (10-42); BILIRUBIN,TOTAL 0.3 mg/dL (0.2-1.0); BUN - BLOOD UREA NITROGEN 34 mg/dL (6-20); CARBON DIOXIDE - CO2 26 mmol/L (21-32); CHLORIDE 104 mmol/L (101-111); CHOL/HDL RATIO 4.6 (<4.4); CHOLESTEROL 273 mg/dL; CREATININE 0.8 mg/dL (0.4-1.0); GFR - MDRD 68 (>89); GLUCOSE 115 mg/dL (70-100); HDL CHOLESTEROL 60 mg/dL; LDL CHOLESTEROL,CALCULATED 187 mg/dL; LDL/HDL RATIO 3.1 (<4.4); SODIUM 138 mmol/L (135-145); TOTAL PROTEIN 7.5 g/dL (6.7-8.2); VLDL CHOLESTEROL 26 mg/dL
[2018-08-01 19:16] LABS: HB2 TOTAL 14.9 g/dL; HEMOGLOBIN A1C 0.6 g/dL; HEMOGLOBIN A1C % 5.8 % (4.6-6.2)
== END 2018-08-01 23:59 | disposition home or self-care (01) ==
LOC: LAB.R 08:00
PROVIDERS: ATTEND Physician Assistant Medical
DX: E55.9 Vitamin D deficiency, unspecified (principal); F32.9 Major depressive disorder, single episode, unspecified; F41.9 Anxiety disorder, unspecified; E78.2 Mixed hyperlipidemia; I10 Essential (primary) hypertension; R73.9 Hyperglycemia, unspecified; Z79.899 Other long term (current) drug therapy
CPT/HCPCS: 80053; 80061; 82306; 83036; 83721; 84443; 85025

== ENCOUNTER 2018-08-06 08:00 | Outpatient (CLI) | payer MEDICARE ==
[2018-08-06 17:17] LABS: BASOPHILS % (AUTO) 0.4 %; EOSINOPHILS # (AUTO) 0.1 10^3/uL (0.0-0.7); EOSINOPHILS % (AUTO) 1.2 %; HGB - HEMOGLOBIN 13.6 g/dL (12.0-16.0); LYMPHOCYTES % (AUTO) 25.8 %; MEAN CORPUSCULAR HEMOGLOBIN 29.3 pg (27.0-31.0); MEAN CORPUSCULAR VOLUME 88.7 fL (81.0-99.0); MONOCYTES # (AUTO) 0.6 10^3/uL (0.0-1.0); MONOCYTES % (AUTO) 7.8 %; NEUTROPHILS # (AUTO) 5.1 10^3/uL (1.5-6.6); NEUTROPHILS % (AUTO) 64.8 %; PLT - PLATELET COUNT 200 10^3/uL (130-450); RED BLOOD COUNT 4.66 10^6/uL (4.20-5.40); RED CELL DISTRIBUTION WIDTH 16.6 % (12.0-15.0); WHITE BLOOD COUNT 7.8 x10^3/uL (4.8-10.8)
[2018-08-06 17:44] LABS: THYROID STIMULATING HORMONE 2.46 uIU/mL (0.34-5.60)
[2018-08-06 17:47] LABS: FREE T4 (FREE THYROXINE) 0.89 ng/dL (0.58-1.64)
== END 2018-08-06 23:59 | disposition home or self-care (01) ==
LOC: LAB.R 08:00
PROVIDERS: ATTEND Physician Assistant Medical
DX: R94.6 Abnormal results of thyroid function studies (principal); R10.32 Left lower quadrant pain
CPT/HCPCS: 84439; 84443; 84481; 85025; 86376; 86800

== ENCOUNTER 2018-08-06 08:00 | Outpatient (CLI) | payer MEDICARE | END 2018-08-06 23:59 | disposition home or self-care (01) | LOC: LAB.R 08:00 | PROVIDERS: ATTEND Physician Assistant Medical | DX: R10.32 Left lower quadrant pain (principal) | CPT/HCPCS: 87086 ==

== ENCOUNTER 2018-08-06 17:17 | Outpatient (CLI) | payer MEDICARE ==
[2018-08-06] MEDS ORDERED: IOVERSOL 320 100 ML VIAL IVP ONE (17:33)
[2018-08-06] MEDS ORDERED: IOVERSOL 320 50 ML VIAL ONE (17:33)
[2018-08-06] MEDS: IOVERSOL 320 100 ML VIAL IVP ONE (19:34)
[2018-08-06] MEDS: IOVERSOL 320 50 ML VIAL PO ONE (19:36)
--- NOTE | 2018-08-06 20:08 | CT Report ---
Reason: ABDOMINAL PAIN,LLQ Procedure Date: 08/06/2018 Accession Number: [id number] / [id number] Procedure: CT - Abdomen/Pelvis W/ CPT Code: FULL RESULT: EXAM: CT ABDOMEN AND PELVIS EXAM DATE: 08/06/2018 07:02 PM. CLINICAL HISTORY: ABDOMINAL PAIN,LLQ. COMPARISONS: None. TECHNIQUE: Routine helical CT imaging was performed through the abdomen and pelvis. IV contrast: 90 cc Optiray 320 IV. Enteric contrast: No. Reconstructions: Coronal and sagittal. In accordance with CT protocol optimization, one or more of the following dose reduction techniques were utilized for this exam: automated exposure control, adjustment of mA and/or KV based on patient size, or use of iterative reconstructive technique. FINDINGS: Lung Bases: There is atelectasis of the lingula. Liver: Normal. No masses. Gallbladder/Bile Ducts: Unremarkable. Spleen: Normal. Pancreas: Normal. Adrenal Glands: Normal. Kidneys: There are small cysts in the left kidney. There is no renal mass or hydronephrosis. Peritoneal Cavity/Bowel: There is a mild to moderate amount of stool within the colon. There are a moderate number of diverticula present throughout the colon, greatest in the sigmoid colon. No localizing bowel wall thickening or inflammatory process is identified. There is oral contrast in the proximal and mid small bowel. No extraintestinal gas or abnormal fluid collection. The appendix is well visualized and normal. Pelvic Organs: Uterus is normal in size. Urinary bladder is empty. Vasculature: No aneurysms or other significant abnormality. Bones: No significant abnormality. Other: None. IMPRESSION: 1. Moderate colonic diverticulosis without localizing acute diverticulitis. 2. Mild to moderate increased colonic stool volume without mechanical bowel obstruction. 3. No other significant acute abnormality or CT finding to explain symptoms. [facility] The call report notification system was initiated by Dr. Jomar Clement at 08:07 PM hrs on 08/06/2018. ADDENDUM: 08/06/18 20:09 The above findings were discussed with Rhiannon Arzola by Dr. Jomar Clement at 08:09 PM hrs on 08/06/2018.
== END 2018-08-06 17:18 | disposition home or self-care (01) ==
LOC: DI 17:17
PROVIDERS: ATTEND Physician Assistant Medical
DX: R10.32 Left lower quadrant pain (principal); K57.30 Diverticulosis of large intestine without perforation or abscess without bleeding; R94.6 Abnormal results of thyroid function studies
CPT/HCPCS: 74177; 84439; 84443; 84481; 85025; 86376; 86800; 87086; Q9967

== ENCOUNTER 2019-01-13 16:53 | Outpatient (CLI) | payer MEDICARE ==
[2019-01-13 18:03] LABS: THYROID STIMULATING HORMONE 4.24 uIU/mL (0.34-5.60)
[2019-01-13 18:05] LABS: FREE T4 (FREE THYROXINE) 1.1 ng/dL (0.58-1.64)
== END 2019-01-13 16:54 | disposition home or self-care (01) ==
LOC: LAB 16:53
PROVIDERS: ATTEND Nurse Practitioner
DX: R94.6 Abnormal results of thyroid function studies (principal)
CPT/HCPCS: 36415; 84439; 84443

== ENCOUNTER 2019-03-17 15:24 | Outpatient (CLI) | payer MEDICARE ==
--- NOTE | 2019-03-18 14:39 | XRAY Report ---
Reason: SCIATICA, RIGHT, CHRONIC BACK PAIN, HIP HOINT PAIN Procedure Date: 03/17/2019 Accession Number: [id number] / [id number] Procedure: XR - Hip w/Pelvis 2-3V RT CPT Code: FULL RESULT: EXAM: RIGHT HIP RADIOGRAPHY EXAM DATE: 03/17/2019 03:43 PM. CLINICAL HISTORY: Sciatica, right, chronic back pain, hip hoint pain. COMPARISON: None. TECHNIQUE: 2 views. FINDINGS: Bones: Normal. No fractures or bone lesion. Joints: No dislocation. The hip joint space is preserved. Mild subchondral sclerotic reactions in the bilateral sacroiliac joints and in the pubic symphysis visualized. Moderate to severe degenerative disk disease in the lower lumbar spine is seen. Soft Tissues: Normal. No soft tissue swelling. IMPRESSION: 1. Negative bilateral hip radiography. 2. Mild bilateral sacroiliitis. 3. Moderate to severe degenerative disk disease in the lower lumbar spine. [facility]
--- NOTE | 2019-03-18 14:40 | XRAY Report ---
Reason: SCIATICA, RIGHT, CHRONIC BACK PAIN, HIP JOINT PAIN Procedure Date: 03/17/2019 Accession Number: [id number] / [id number] Procedure: XR - Lumbar Spine 2 View CPT Code: FULL RESULT: EXAM: LUMBOSACRAL SPINE RADIOGRAPHY EXAM DATE: 03/17/2019 03:43 PM. CLINICAL HISTORY: SCIATICA, RIGHT, CHRONIC BACK PAIN, HIP JOINT PAIN. COMPARISONS: XR LUMBOSACRAL SPINE 4 VIEWS 04/19/2010 4:32 PM. TECHNIQUE: 3 views. FINDINGS: Alignment: There is posterior spondylolisthesis at L1-L2, 5 mm, less prominent in the flexion view, and previously 3 mm in neutral position. There is anterior spondylolisthesis at L4-L5, 7 mm, less prominent in the flexion view, and previously 5 mm in neutral position. No scoliosis. Bones: Five [id number]-[id number] lumbar vertebral bodies are present. There is a new mild nonacute compression fracture at L1. Disks: There is multilevel mild to severe degenerative disk disease in the lower thoracic spine through the lumbar spine, predominantly at T12-L1 and L1-L2, worsening since last exam. Facets: No significant interval changes of the mild/moderate hypertrophic degenerative changes at L4-L5 and L5-S1. Sacroiliac Joints: Unremarkable. Soft Tissues: The visualized bowel gas pattern is normal. IMPRESSION: 1. Interval worsening with evidence of instability of the grade 1 anterior spondylolisthesis at L4-L5, anterior spondylolisthesis at L4-L5. 2. Interval worsening multilevel mild to severe degenerative disk disease in the lower thoracic spine through the lumbar spine, predominantly at T12-L1 and L1-L2. 3. Interval new mild non-acute compression fracture at L1. [facility]
== END 2019-03-17 15:25 | disposition home or self-care (01) ==
LOC: DI 15:24
PROVIDERS: ATTEND Nurse Practitioner
DX: M51.36 Other intervertebral disc degeneration, lumbar region (principal); M51.34 Other intervertebral disc degeneration, thoracic region; M43.16 Spondylolisthesis, lumbar region; M47.816 Spondylosis without myelopathy or radiculopathy, lumbar region; M47.817 Spondylosis without myelopathy or radiculopathy, lumbosacral region
CPT/HCPCS: 72100

== ENCOUNTER 2019-03-27 10:02 | Outpatient (CLI) | payer MEDICARE ==
--- NOTE | 2019-03-27 17:00 | MRI Report ---
Reason: DJD, LUMBOSACRAL SPINE, SCIATICA RIGHT, CHRONIC BA Procedure Date: 03/27/2019 Accession Number: [id number] / [id number] Procedure: MRI - Lumbar Spine W/O CPT Code: FULL RESULT: EXAM: MRI LUMBAR SPINE WITHOUT CONTRAST EXAM DATE: 03/27/2019 10:44 AM. CLINICAL HISTORY: Chronic back pain. Sciatica on the right. History of degenerative joint disease. COMPARISON: CT of the lumbar spine 04/03/2015. TECHNIQUE: Multiplanar, multisequence T1-weighted and fluid-sensitive sequences of the lumbar spine from T9 to S1 without contrast. Other: None. FINDINGS: Spinal Canal: The conus terminates at L1-L2. Unremarkable appearance of the conus medullaris. Alignment: No significant change in alignment. Mild upper lumbar levoscoliosis. Multiple chronic appearing degenerative subluxations are present including retrolisthesis of T12 on L1, retrolisthesis of L1 on L2 and anterolisthesis of L4 on L5 and L5 on S1. Bone Marrow: Five oky-uuu-dlrucwj lumbar vertebral bodies are assumed. Chronic appearing degenerative endplate signal changes at multiple levels. No evidence of acute compression fracture. In the lower thoracic spine sagittal images show findings of moderately prominent chronic multilevel disk degeneration and facet arthropathy with marginal spurring and circumferential bulges but no significant central stenosis or cord impingement. Mild to moderate chronic appearing degenerative foraminal stenosis in the lower thoracic spine appears to be present, especially notable for example on the left at T10-T11. Disk Levels/Facets: T12-L1: Again seen are findings of severe disk degeneration. Marginal spurring and circumferential bulge are present as well as moderate facet arthropathy. Central stenosis is minimal. Foraminal stenosis is moderate bilaterally, probably worse on the right than the left. L1-L2: Mild to moderate disk degeneration and facet arthropathy. Circumferential bulge and marginal spurring. More prominent left and right intraforaminal disk protrusion. Patent central canal. Mild right and mild to moderate left foraminal stenosis. L2-L3: Mild disk degeneration and facet arthropathy. Shallow circumferential bulge. No significant stenosis. L3-L4: Mild to moderate disk degeneration and facet arthropathy. Minimal anterior marginal spurring. Shallow circumferential bulge. Ligamentum flavum thickening. Mild foraminal stenosis. Minimal central stenosis. L4-L5: Moderate disk degeneration. Severe facet arthropathy. Prominent left minimal flavum thickening bilaterally. Severe central canal and lateral recess stenosis. Circumferential bulge. Mild to moderate bilateral foraminal stenosis. L5-S1: Moderate disk degeneration. Severe facet arthropathy. Shallow circumferential bulge. Patent central canal. Mild foraminal stenosis. Musculature: Mild to moderate diffuse fatty atrophy. Other: Sigmoid diverticulosis. Incompletely characterized at least 2 cm fluid signal cyst or cystlike structure in the left upper pelvis on image 1 of series 601 there is unknown significance. IMPRESSION: 1. Compared to prior CT, similar findings of prominent chronic multilevel hypertrophic degenerative spinal spondylosis in the lumbar and lower thoracic spine without evidence of significant alignment change. 2. Severe stenosis of the central canal and lateral recesses at the L4-L5 level. 3. Mild to moderate degenerative foraminal stenosis bilaterally at multiple levels. 4. Diffuse disk degeneration. This appears most severe at the T12-L1 level. 5. Diffuse facet arthropathy, most severe at L4-L5 and L5-S1. 6. Circumferential disk bulges are seen throughout the lumbar spine, but there is no evidence for acute or focal extruded disk fragment. 7. Incompletely visualized approximately 2 cm fluid signal cyst or cystlike structure in the left upper pelvis on image 1 of series 601 is incompletely visualized and of uncertain clinical significance. Comment: The following findings are so common in adults without low back pain that while we report their presence, they must be interpreted with caution and in the context of the clinical situation. (Reference Paulettek et al, Spine 2001) Prevalence of findings in patients without low back pain: Disk degeneration (any evidence): 92% Disk desiccation/T2 signal loss: 83% Disk height loss: 56% Disk bulge: 64% Disk protrusion: 32% Annular tear/high intensity zone: 38% [facility]
== END 2019-03-27 10:03 | disposition home or self-care (01) ==
LOC: DI 10:02
PROVIDERS: ATTEND Nurse Practitioner
DX: M47.817 Spondylosis without myelopathy or radiculopathy, lumbosacral region (principal); M47.816 Spondylosis without myelopathy or radiculopathy, lumbar region; M51.36 Other intervertebral disc degeneration, lumbar region; M48.061 Spinal stenosis, lumbar region without neurogenic claudication; M48.07 Spinal stenosis, lumbosacral region; M51.37 Other intervertebral disc degeneration, lumbosacral region; M51.26 Other intervertebral disc displacement, lumbar region; M51.35 Other intervertebral disc degeneration, thoracolumbar region; M48.05 Spinal stenosis, thoracolumbar region
CPT/HCPCS: 72148

== ENCOUNTER 2020-08-04 08:00 | Outpatient (CLI) | payer MEDICARE | END 2020-08-04 23:59 | disposition home or self-care (01) | LOC: LAB.R 08:00 | PROVIDERS: ATTEND Nurse Practitioner | DX: Z20.822 Contact with and (suspected) exposure to COVID-19 (principal) ==

== ENCOUNTER 2020-08-04 11:37 | Outpatient (CLI) | payer MEDICARE ==
[2020-08-04 18:50] LABS: BASOPHILS # (AUTO) 0.1 10^3/uL (0.0-0.1); BASOPHILS % (AUTO) 0.7 %; EOSINOPHILS # (AUTO) 0.1 10^3/uL (0.0-0.7); EOSINOPHILS % (AUTO) 1.5 %; HGB - HEMOGLOBIN 13.4 g/dL (12.0-16.0); LYMPHOCYTES # (AUTO) 2.2 10^3/uL (1.5-3.5); LYMPHOCYTES % (AUTO) 26.5 %; MEAN CORPUSCULAR HEMOGLOBIN 29.6 pg (27.0-31.0); MEAN CORPUSCULAR HGB CONC 31.5 g/dL (32.0-36.0); MEAN PLATELET VOLUME 12.1 fL (7.9-10.8); MONOCYTES # (AUTO) 0.7 10^3/uL (0.0-1.0); MONOCYTES % (AUTO) 8.1 %; NEUTROPHILS # (AUTO) 5.1 10^3/uL (1.5-6.6); NEUTROPHILS % (AUTO) 62.8 %; PLT - PLATELET COUNT 233 10^3/uL (130-450); RED BLOOD COUNT 4.53 10^6/uL (4.20-5.40); RED CELL DISTRIBUTION WIDTH 13.7 % (12.0-15.0); WHITE BLOOD COUNT 8.2 x10^3/uL (4.8-10.8)
[2020-08-04 19:13] LABS: ALBUMIN 4.3 g/dL (3.2-5.5); ALBUMIN/GLOBULIN RATIO 1.5 (1.0-2.2); ALKALINE PHOSPHATASE 74 IU/L (42-121); ALT ALANINE AMINOTRANSFERASE 18 IU/L (10-60); AST ASPARTATE AMINOTRANSFERASE 29 IU/L (10-42); BILIRUBIN,TOTAL 0.8 mg/dL (0.2-1.0); BUN - BLOOD UREA NITROGEN 32 mg/dL (6-20); CALCIUM 9.4 mg/dL (8.5-10.3); CARBON DIOXIDE - CO2 28 mmol/L (21-32); CHLORIDE 102 mmol/L (101-111); CHOL/HDL RATIO 3.9 (<4.4); CHOLESTEROL 219 mg/dL; CREATININE 0.9 mg/dL (0.4-1.0); GLUCOSE 91 mg/dL (70-100); HDL CHOLESTEROL 56 mg/dL; LDL CHOLESTEROL,CALCULATED 140 mg/dL; LDL/HDL RATIO 2.5 (<4.4); TOTAL PROTEIN 7.2 g/dL (6.7-8.2); VLDL CHOLESTEROL 23 mg/dL
== END 2020-08-04 23:59 | disposition home or self-care (01) ==
LOC: LAB.WCP 11:37
PROVIDERS: ATTEND Nurse Practitioner
DX: E55.9 Vitamin D deficiency, unspecified (principal); R73.9 Hyperglycemia, unspecified; E78.2 Mixed hyperlipidemia; I10 Essential (primary) hypertension; Z79.899 Other long term (current) drug therapy
CPT/HCPCS: 36415; 80053; 80061; 83721; 84443; 85025